=== PATIENT | male | born 1955 ===

== ENCOUNTER 2018-01-15 08:10 | Inpatient (IN) | payer OTHER ==
[~2018-01-15] VITALS: Ht 182.9 cm; Wt 94.3 kg
[2018-01-15] MEDS ORDERED: LOSARTAN-HCTZ1 EAC2 PO (09:58)
== END 2018-01-21 14:26 | DRG 470 ==
LOC: O/R 01-18 05:00 → SURH 01-18 15:52
PROVIDERS: Orthopaedic Surgery
PROC: 0SRC0J9 Replacement of Right Knee Joint with Synthetic Substitute, Cemented, Open Approach (ICD-10-PCS; principal; 2018-01-18 05:00)
DX: M17.11 Unilateral primary osteoarthritis, right knee (principal); D62 Acute posthemorrhagic anemia; M85.461 Solitary bone cyst, right tibia and fibula; I10 Essential (primary) hypertension